=== PATIENT | female | born 1980 | race Caucasian/White ===

== ENCOUNTER → 2017-10-12 | Outpatient (CLI) | payer OTHER ==
[~2017-10-12] MED LIST: ALPR0.25 PO; FLUO20CA42 PO; IOHEXOL 350 MG/ML 100 ML (OMNIPAQUE 350) VIAL IV ONE; NS 250 ML (IVPB) BAG IV ONE; PANT40TA2 PO
[2017-10-12 09:49] LABS: BUN/CREATININE RATIO 13; CREATININE SERUM 0.75 MG/DL (0.60-1.30); GFR ESTIMATED > 60
--- NOTE | 2017-10-12 10:15 | Diagnostic Imaging Report ---
PROCEDURE: CT abdomen and pelvis without contrast. TECHNIQUE: Multiple contiguous axial images were obtained through the abdomen and pelvis without the use of intravenous contrast. INDICATION: Epigastric pain, nausea, vomiting, possible hernia. Comparison made with prior examination of 03/20/2015. FINDINGS: The heart size is normal. The lung bases are clear. The liver is normal in size without focal lesions. Gallbladder surgically absent. Spleen is normal. The pancreas and adrenal glands are unremarkable. Kidneys are normal in appearance. Aorta is nonaneurysmal. Bowel gas pattern is nonspecific. The appendix is normal. There is some soft tissue fullness in the region of the cervix. Underlying cervical mass cannot be excluded. There is also a small amount of free pelvic fluid. The osseous structures are unremarkable. IMPRESSION: Soft tissue fullness with central decreased density in the region of the cervix. This is nonspecific although cervical mass cannot be excluded. Recommend clinical correlation. There is also a small amount of free pelvic fluid. Otherwise unremarkable noncontrast CT abdomen and pelvis. Dictated by: Dictated on workstation # [id number]
== END ==
LOC: RAD 09:10
PROVIDERS: ATTEND Nurse Practitioner Family
DX: R10.13 Epigastric pain (principal); R11.2 Nausea with vomiting, unspecified
CPT/HCPCS: 36415; 74176; 82565; 84520

== ENCOUNTER → 2017-10-24 | Outpatient (CLI) | payer OTHER ==
[~2017-10-24] MED LIST changes: -IOHEXOL 350 MG/ML 100 ML (OMNIPAQUE 350) VIAL IV ONE; -NS 250 ML (IVPB) BAG IV ONE
--- NOTE | 2017-10-24 16:49 | Diagnostic Imaging Report ---
INDICATION: Pelvic pain TECHNIQUE: Multiple real time schaeffer scale sonographic images were obtained of the pelvis transabdominally and transvaginally. CORRELATION STUDY: None FINDINGS: UTERUS/ENDOMETRIUM: Uterus measures 8.6 x 4.7 x 4.0 cm. Endometrial thickness is 9 mm. Probable cervical nabothian cyst with calcifications at the level cervix. RIGHT OVARY: 1.7 x 2.1 x 3.1 cm. Unremarkable. No mass. Normal blood flow. LEFT OVARY: 3.2 x 2.6 x 2.3 cm. Small hypoechoic mass probable cyst at 14 mm in size. Normal blood flow. No significant free pelvic fluid. IMPRESSION: 1. Unremarkable appearing pelvic ultrasound examination. 2. Probable calcified cervical nabothian cyst. 2. Likely physiologic left ovarian cyst. Dictated by: Dictated on workstation # [id number]
[2017-10-26 06:47] LABS: HEPATITIS C ANTIBODY C Non-Reactive (Non-Reactive)
== END ==
LOC: RAD 15:44
PROVIDERS: ATTEND Nurse Practitioner
DX: Z11.3 Encounter for screening for infections with a predominantly sexual mode of transmission (principal); R10.2 Pelvic and perineal pain
CPT/HCPCS: 36415; 76830; 76856; 80074; 86703; 86780